=== PATIENT | female | born 1935 | race Caucasian/White ===

== ENCOUNTER 2021-11-23 09:41 | Emergency (ER) | payer MEDICARE, OTHER | END 2021-11-23 13:30 | disposition home or self-care (01) | LOC: FER 09:41 | DX: S00.83XA Contusion of other part of head, initial encounter (principal); I10 Essential (primary) hypertension; Z88.0 Allergy status to penicillin; W01.198A Fall on same level from slipping, tripping and stumbling with subsequent striking against other object, initial encounter; Y92.129 Unspecified place in nursing home as the place of occurrence of the external cause | CPT/HCPCS: 70450; 70486 ==